=== PATIENT | male | born 1970 | race Two or more races ===

== ENCOUNTER 2025-01-06 10:00 | Outpatient (RCR) | payer MEDICAID, SELFPAY ==
--- NOTE | 2024-12-28 08:11 | PT.OIERPT ---
PT OP Initial Eval Patient Information Outpatient Physical Therapy Treatment Date: 12/28/24 Visit Reasons: right ankle pain Medical Diagnosis: M25.471 Treatment Dx #1: R ankle pain Start of Care: 12/28/24 Date of Onset: 04/2024 Smoking Status Smoking Status: Current some day smoker Cessation Counseling Provided: RAUL was advised that quitting smoking is the single most important factor to protect the health of themselves and their family. Discussed the benefits of quitting smoking with patient. Encouraged patient to quit smoking and provided Cessation assistance materials and resources. Tobacco Use: Cigarette Years smoked: 20 Are you interested in quitting?: Yes Would you like additional Smoking Cessation Counseling?: No Initial Assessment Subjective: Pt is 54 yr old croatian speaking male who reports R ankle injury last April with continued pain and swelling when it's cold outside and sometimes after work. Increased pain with walking, work duties in the [employer] and it hurts with going up and down ladders, getting up from the ground. PMH: none reported Imaging: Xrays of R ankle in EMR Pt goal: to walk further with less pain Objective: R ankle AROM: DF: 10 deg Plantarflexion: to 45 deg with pain over ATJ Inv/Eversion 15 deg pain into inversion Strength: Ankle DF 4+/5, PF: 4-/5 Heel raise B slowly x1 with pain TTP: medial and lateral malleoli and over ATF ligament Sensation: intact to light touch of R foot Assessment: Pt presents with pain into R ankle inversion and pain with forefoot inversion consistent with ATJ instability and slow healing high ankle and ATF ligament sprain. Pt may benefit from skilled therapy to meet goals and has fair rehab potential. PT recommends lace up ankle brace and he was given printout of example. He may benefit from further diagnostic imaging of R ankle. Short Term and [employer] Goals 1. Independent with HEP ? 2. Decreased TTP from mod to min of malleoli 3. Pt will do work duties with <=3/10 R ankle pain ? 4. Improved ambulatory distance to community distances with symmetrical gait pattern Treatment Plan 1. Manual therapy ? 2. Therex ? 3. Modalities as indicated, moist heat, ice, TENS Frequency and Duration: 2x a week for 6 sessions plus the eval Certification Dates: 12/28/24 to 03/28/25 Procedure Charges OP PT Eval Mod Complex 30 minutes: Yes
--- NOTE | 2025-01-04 13:04 | PT.ODAYNRPT ---
PT Outpatient Daily Note OP Daily Note Outpatient Physical Therapy Treatment Date: 01/04/25 Visit Reasons: right ankle pain Subjective: Pt reports R ankle is ok, has pain with prolonged periods of standing walking. Objective: Please see flow sheet for ther ex list. Assessment: Pt tolerated interventions with minimal pain. Plan: Continue with POC. Length of Time (minutes) of Treatment: 30 Minutes Procedure Charges Therapeutic Exercise 30 minutes: Yes
--- NOTE | 2025-01-06 10:26 | PT.ODAYNRPT ---
PT Outpatient Daily Note OP Daily Note Outpatient Physical Therapy Treatment Date: 01/06/25 Visit Reasons: right ankle pain Subjective: Pt reports R ankle is doing ok, was just at little sore after last session. Pt shared that the top of his foot with calf stretch at wall. Objective: Please see flow sheet for ther ex list. Assessment: Modified calf stretch to using pro stretch, no pain to report. Plan: Continue with pOC. Length of Time (minutes) of Treatment: 30 Minutes Procedure Charges Therapeutic Exercise 30 minutes: Yes
== END 2025-01-12 23:59 | disposition home or self-care (01) ==
LOC: CPTX 10:00
PROVIDERS: PCP Family Medicine; Referring Provider Family Medicine; Visit Provider Family Medicine
DX: M25.571 Pain in right ankle and joints of right foot (principal); S99.911D Unspecified injury of right ankle, subsequent encounter; X50.1XXD Overexertion from prolonged static or awkward postures, subsequent encounter; Z71.6 Tobacco abuse counseling; F17.210 Nicotine dependence, cigarettes, uncomplicated
CPT/HCPCS: 97110; 97162

== ENCOUNTER 2025-01-20 09:30 | Outpatient (RCR) | payer MEDICAID, SELFPAY ==
--- NOTE | 2025-01-18 10:15 | PT.ODAYNRPT ---
PT Outpatient Daily Note OP Daily Note Outpatient Physical Therapy Treatment Date: 01/18/25 Visit Reasons: Right ankle pain Subjective: Pt reports ankle continues to be painful. 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 Pain is worse in the evening and ankle swells up and throbs. Pt mentiond that ankle and the top of the foot are tender to touch and bothersome when pants rub on foot. Pt c/o discoloring of the toop of the foot and toes. Objective: Please see flow sheet for ther ex list. Assessment: Assessed pt foot, swelling on lateral malleouls and some discoloring darkening of toes pt denies numbing, loss of sensation and changes in temperature. Plan: Continue with POC. Length of Time (minutes) of Treatment: 30 Minutes Procedure Charges Therapeutic Exercise 30 minutes: Yes
--- NOTE | 2025-01-20 11:34 | PT.ODAYNRPT ---
PT Outpatient Daily Note OP Daily Note Outpatient Physical Therapy Treatment Date: 01/20/25 Visit Reasons: Right ankle pain Subjective: Continued ankle pain Objective: SEe F/S for therex Assessment: Moderate tissue irritability R ankle Plan: Continue per POC Length of Time (minutes) of Treatment: 30 Minutes Procedure Charges Therapeutic Exercise 30 minutes: Yes
== END 2025-02-12 23:59 | disposition home or self-care (01) ==
LOC: CPTX 09:30
PROVIDERS: PCP Family Medicine; Referring Provider Family Medicine; Visit Provider Family Medicine
DX: M25.571 Pain in right ankle and joints of right foot (principal); M25.471 Effusion, right ankle; S99.911D Unspecified injury of right ankle, subsequent encounter; X58.XXXD Exposure to other specified factors, subsequent encounter
CPT/HCPCS: 97110